=== PATIENT | female | born 1985 | race Caucasian/White ===

== ENCOUNTER → 2018-01-09 | Outpatient (REF) ==
[~2018-01-09] MED LIST: BIRTH CONTROL PO; DESO1TAB17 PO; DIPH-740 PO; HYDR2TAB74 PO; IBU200 PO; IBUP600T22 PO; LOR5 PO; NO RTN MEDS; PHEN100 PO
[2018-01-09 10:15] LABS: LDL CHOLESTEROL 79 mg/dl
== END ==
DX: Z02.9 Encounter for administrative examinations, unspecified (principal)